=== PATIENT | female | born 1950 | race Caucasian/White ===

== ENCOUNTER → 2023-03-13 | Outpatient (RCR) | payer MEDICARE | END | disposition home or self-care (01) | LOC: ONC 12-10 11:55 | PROVIDERS: ATTEND Radiology Radiation Oncology | DX: Z51.0 Encounter for antineoplastic radiation therapy (principal); C50.411 Malignant neoplasm of upper-outer quadrant of right female breast; I10 Essential (primary) hypertension; E03.9 Hypothyroidism, unspecified; Z98.890 Other specified postprocedural states | CPT/HCPCS: 77290; 77295; 77300; 77334; 77336; 77417; 77470; 99205 ==

== ENCOUNTER 2023-05-22 08:42 | Outpatient (RCR) | payer MEDICARE | END 2023-06-12 | disposition home or self-care (01) | LOC: ONC 08:42 | PROVIDERS: ATTEND Radiology Radiation Oncology | DX: C50.411 Malignant neoplasm of upper-outer quadrant of right female breast (principal); I10 Essential (primary) hypertension; E03.9 Hypothyroidism, unspecified; E78.00 Pure hypercholesterolemia, unspecified; Z98.890 Other specified postprocedural states | CPT/HCPCS: 99213 ==